=== PATIENT | male | born 1965 | race American Indian/Alaskan Native ===

== ENCOUNTER 2020-10-30 00:12 | Observation (INO) | payer OTHER ==
[2020-10-30] MEDS ORDERED: ASPIRIN 325 MG TAB PO ONE (00:22)
[2020-10-30] MEDS ORDERED: fentaNYL 100 MCG/2 ML INJ IV ONE (01:00)
[2020-10-30] MEDS ORDERED: NITROGLYCERIN 2% OINT 1 GM TP ONE (01:00)
[2020-10-30] MEDS ORDERED: ONDANSETRON 4 MG/2 ML INJ IV ONE (01:00)
--- NOTE | 2020-10-30 01:05 | Emergency Department Report ---
HPI - General Chief Complaint: Chest Pain Time Seen by Provider: 10/30/20 00:49 - HPI HPI: Room 22 The patient is a 55-year-old male present with a chief complaint of chest pain. Patient states for 1 week he has had a constant substernal chest tightness. The patient states the tightness worsened tonight prompting him to come to the hospital. Patient denies shortness of breath, nausea/vomiting or diaphoresis with his pain. Patient currently gets his chest tightness a score of 8/10. Patient states he is never had a stress test or cardiac catheterization. Patient states he has a history of crack abuse but has not used any since last year ED Past Medical Hx - Past Medical History Previous Medical History?: Yes Hx Hypertension: Yes Hx Diabetes: Yes - Surgical History Past Surgical History?: No - Family History Family history: no significant - Social History Smoking Status: Never Smoker Substance Use Type: None (No illicit drugs currently. History of crack abuse last year), Alcohol (Occasional) ED Review of Systems ROS: Stated complaint: CHEST PAIN Other details as noted in HPI Constitutional: denies: diaphoresis Eyes: denies: eye pain ENT: denies: throat pain Respiratory: denies: shortness of breath Cardiovascular: chest pain Endocrine: no symptoms reported Gastrointestinal: denies: nausea, vomiting Genitourinary: denies: dysuria Musculoskeletal: denies: back pain Neurological: denies: headache Physical Exam - Physical Exam Physical Exam: GENERAL: The patient is well-developed well-nourished male lying on stretcher holding chest appearing to be in mild discomfort HEENT: Normocephalic. Atraumatic. Extraocular motions are intact. Patient has moist mucous membranes. NECK: Supple. Trachea midline CHEST/LUNGS: Clear to auscultation. There is no respiratory distress noted. HEART/CARDIOVASCULAR: Regular. There is no tachycardia. There is no gallop rub or murmur. ABDOMEN: Abdomen is soft, nontender. Patient has normal bowel sounds. There is no abdominal distention. SKIN: There is no rash. There is no edema. There is no diaphoresis. NEURO: The patient is awake, alert, and oriented. The patient is cooperative. The patient has no focal neurologic deficits. The patient has normal speech MUSCULOSKELETAL: There is no evidence of acute injury. ED Medical Decision Making - Lab Data Result diagrams: 10/30/20 00:41 10/30/20 00:41 Laboratory Tests 10/30/20 10/30/20 10/30/20 00:41 00:41 00:41 WBC 6.1 RBC 5.26 H Hgb 14.1 Hct 42.6 MCV 81 L MCH 27 L MCHC 33 RDW 14.9 Plt Count 212 Lymph % (Auto) 36.6 H [place] % (Auto) 9.5 H Eos % (Auto) 2.8 Baso % (Auto) 0.9 Lymph # (Auto) 2.2 [place] # (Auto) 0.6 Eos # (Auto) 0.2 Baso # (Auto) 0.1 Seg Neutrophils % 50.2 Seg Neutrophils # 3.0 PT INR Sodium 142 Potassium 4.0 Chloride 108.0 H Carbon Dioxide 24 Anion Gap 14 BUN 13 Creatinine 1.0 Estimated GFR > 60 BUN/Creatinine Ratio 13 Glucose 203 H Calcium 8.3 L Total Bilirubin 0.20 AST 17 ALT 14 Alkaline Phosphatase 71 Troponin T < 0.010 Total Protein 6.8 Albumin 3.8 L Albumin/Globulin Ratio 1.3 10/30/20 00:52 WBC RBC Hgb Hct MCV MCH MCHC RDW Plt Count Lymph % (Auto) [place] % (Auto) Eos % (Auto) Baso % (Auto) Lymph # (Auto) [place] # (Auto) Eos # (Auto) Baso # (Auto) Seg Neutrophils % Seg Neutrophils # PT 11.5 L INR 0.86 L Sodium Potassium Chloride Carbon Dioxide Anion Gap BUN Creatinine Estimated GFR BUN/Creatinine Ratio Glucose Calcium Total Bilirubin AST ALT Alkaline Phosphatase Troponin T Total Protein Albumin Albumin/Globulin Ratio - EKG Data -: EKG Interpreted by Me EKG shows normal: sinus rhythm Rate: normal - EKG Data When compared to previous EKG there are: previous EKG unavailable Interpretation: nonspecific ST-T wave arnav (T wave inversions in leads I and aVL.) - Radiology Data Radiology results: report reviewed (Chest x-ray), image reviewed (Chest x-ray) interpreted by me: Chest x-ray-no focal infiltrates, no pneumothorax. No foreign body seen [facility] [address] [place] [address] XRay Report Signed Patient: FRANKIE SUNSHINE MR#: [id number] : 1965 Acct:[id number] Age/Sex: 55 / M ADM Date: 10/30/20 Loc: ED Attending Dr: Ordering Physician: ELI DAVIS MD Date of Service: 10/30/20 Procedure(s): XR chest 1V ap Accession Number(s): [id number] cc: ELI DAVIS MD Fluoro Time In Minutes: CHEST 1 VIEW 10/30/2020 12:14 AM INDICATION / CLINICAL INFORMATION: chest pain. COMPARISON: None available. FINDINGS: SUPPORT DEVICES: None. HEART / MEDIASTINUM: No significant abnormality. LUNGS / PLEURA: No significant pulmonary or pleural abnormality. No pneumothorax. ADDITIONAL FINDINGS: No significant additional findings. IMPRESSION: 1. No acute findings. Signer Name: Marco Antonio Beltre MD Signed: 10/30/2020 1:17 AM Workstation Name: [id number] Transcribed By: TL Dictated By: Marco Antonio Beltre MD Electronically Authenticated By: Marco Antonio Beltre MD Signed Date/Time: 10/30/20116 DD/ 6 - Differential Diagnosis ACS, pericarditis, GERD Critical care attestation.: If time is entered above; I have spent that time in minutes in the direct care of this critically ill patient, excluding procedure time. ED Disposition Clinical Impression: Chest pain Disposition: 09 OP ADMIT IP TO THIS HOSP Is pt being admited?: Yes Does the pt Need Aspirin: Yes Condition: Fair Instructions: Nonspecific Chest Pain, Adult Time of Disposition: 02:11 (Hospitalist paged (Dr Cabrera)) Heart Score - HEART Score History: Moderately suspicious EKG: Non-specific Age: 45-65 Risk factors: 1-2 risk factors Troponin: < normal limit HEART Score: 4
--- NOTE | 2020-10-30 01:22 | XRay Report ---
CHEST 1 VIEW 10/30/2020 12:14 AM INDICATION / CLINICAL INFORMATION: chest pain. COMPARISON: None available. FINDINGS: SUPPORT DEVICES: None. HEART / MEDIASTINUM: No significant abnormality. LUNGS / PLEURA: No significant pulmonary or pleural abnormality. No pneumothorax. ADDITIONAL FINDINGS: No significant additional findings. IMPRESSION: 1. No acute findings. Signer Name: Marco Antonio Beltre MD Signed: 10/30/2020 1:17 AM Workstation Name: [id number]
[2020-10-30 01:34] LABS: Basophils # (Auto) 0.1 K/mm3 (0.0-0.1); Basophils % (Auto) 0.9 % (0.0-1.8); Eosinophils # (Auto) 0.2 K/mm3 (0.0-0.4); Eosinophils % (Auto) 2.8 % (0.0-4.3); Hematocrit 42.6 % (35.5-45.6); Hemoglobin 14.1 gm/dl (11.8-15.2); Lymphocytes # (Auto) 2.2 K/mm3 (1.2-5.4); Lymphocytes % (Auto) 36.6 % (13.4-35.0); Mean Corpuscular HGB Conc 33 % (32-34); Mean Corpuscular Volume 81 fl (84-94); Monocytes # (Auto) 0.6 K/mm3 (0.0-0.8); Monocytes % (Auto) 9.5 % (0.0-7.3); Platelet Count 212 K/mm3 (140-440); Red Blood Count 5.26 M/mm3 (3.65-5.03); Red Cell Distribution Width 14.9 % (13.2-15.2)
[2020-10-30 01:42] LABS: INR 0.86 (0.87-1.13)
[2020-10-30 01:58] LABS: Alanine Aminotransferase 14 units/L (7-56); Albumin 3.8 g/dL (3.9-5); BUN/Creatinine Ratio 13; Blood Urea Nitrogen 13 mg/dL (9-20); Calcium 8.3 mg/dL (8.4-10.2); Hemolysis Index 12
[2020-10-30] MEDS ORDERED: NITROGLYCERIN 0.4 MG TAB SUBL SL PRN (02:27)
[2020-10-30] MEDS ORDERED: ACETAMINOPHEN 325 MG TAB PO PRN ×2 (02:27)
[2020-10-30] MEDS ORDERED: ONDANSETRON 4 MG/2 ML INJ IV PRN (02:27)
[2020-10-30] MEDS ORDERED: traMADol 50 MG TAB PO PRN (02:27)
[2020-10-30] MEDS ORDERED: DEXTROSE 50% IN WATER (25GM) 50 ML SYRINGE IV PRN (02:27)
[2020-10-30] MEDS ORDERED: MORPHINE 2 MG/1 ML INJ IV PRN (02:27)
[2020-10-30] MEDS ORDERED: MAGNESIUM HYDROXIDE (MOM) ORAL LIQD UDC PO PRN (02:27)
--- NOTE | 2020-10-30 02:40 | History and Physical Report ---
History of Present Illness Date of examination: 10/30/20 Date of admission: 10/30/2020 Chief complaint: Chest Pain History of present illness: 55-year-old -[place] male with known history of hypertension and diabetes mellitus presenting to the emergency room today complaining of chest pain. Chest pain is substernal, constant and has been ongoing for about 1 week. Pain felt like tightness and suddenly woke him up tonight and therefore decided to report to the emergency room for further evaluation. He denies any fever or chills, no nausea or vomiting, no headache or dizziness, no diaphoresis. On a scale of 10 pain is about 8/10 in severity. Pain is worse on exertion and gets better on resting. Patient admits to having history of crack abuse about a year ago and is currently in a rehab program. Work-up in the emergency room has been unremarkable except for some flipped T waves in the lateral leads on EKG. Patient is being admitted for chest pain evaluation. Past History Past Medical History: diabetes, hypertension Past Surgical History: No surgical history Social history: alcohol abuse (Occasional Alcohol intake), other (H/O crack cocaine abuse last year - in Rehab.) Family history: no significant family history Medications and Allergies Allergies Allergy/AdvReac Type Severity Reaction Status Date / Time No Known Allergies Allergy Unverified 10/30/20 00:16 Review of Systems Constitutional: no fever, no chills Ears, nose, mouth and throat: no nasal congestion, no sore throat Cardiovascular: chest pain, no palpitations Respiratory: no cough, no shortness of breath Gastrointestinal: no abdominal pain, no nausea, no vomiting, no diarrhea Genitourinary Male: no dysuria, no hematuria, no flank pain, no nocturia Musculoskeletal: no neck pain, no low back pain Integumentary: no rash, no pruritis Neurological: no headaches, no confusion Psychiatric: no anxiety, no depression Endocrine: no polyphagia, no polydipsia, no polyuria, no nocturia Exam - Constitutional Vitals: Temp Pulse Resp BP Pulse Ox 98.7 F 69 21 157/77 97 10/30/20 00:20 10/30/20 01:46 10/30/20 01:46 10/30/20 01:46 10/30/20 01:46 General appearance: Present: no acute distress, well-nourished, obese - EENT Eyes: Present: PERRL, EOM intact. Absent: scleral icterus ENT: hearing intact, clear oral mucosa, dentition normal - Neck Neck: Present: supple, normal ROM - Respiratory Respiratory effort: normal Respiratory: bilateral: CTA - Cardiovascular Rhythm: regular Heart Sounds: Present: S1 & S2. Absent: gallop, systolic murmur, diastolic murmur, rub, click - Extremities Extremities: no ischemia, pulses intact, pulses symmetrical, No edema, normal temperature, normal color, Full ROM Peripheral Pulses: within normal limits - Abdominal General gastrointestinal: Present: soft, non-tender, non-distended, normal bowel sounds. Absent: mass - Integumentary Integumentary: Present: clear, warm, dry, normal turgor. Absent: rash - Musculoskeletal Musculoskeletal: strength equal bilaterally - Psychiatric Psychiatric: appropriate mood/affect, intact judgment & insight, memory intact, cooperative - Neurologic Neurologic: CNII-XII intact, no focal deficits, moves all extremities HEART Score - HEART Score History: Moderately suspicious EKG: Non-specific Age: 45-65 Risk factors: 1-2 risk factors Troponin: Troponin T < 0.010 ng/mL (0.00-0.029) 10/30/20 00:41 Troponin: < normal limit HEART Score: 4 Results - Labs CBC & Chem 7: 10/30/20 00:41 10/30/20 00:41 Labs: Abnormal lab results 10/30/20 10/30/20 10/30/20 Range/Units 00:41 00:41 00:52 RBC 5.26 H (3.65-5.03) M/mm3 MCV 81 L (84-94) fl MCH 27 L (28-32) pg Lymph % (Auto) 36.6 H (13.4-35.0) % [place] % (Auto) 9.5 H (0.0-7.3) % PT 11.5 L (12.2-14.9) Sec. INR 0.86 L (0.87-1.13) Chloride 108.0 H (98-107) mmol/L Glucose 203 H (75-100) mg/dL Calcium 8.3 L (8.4-10.2) mg/dL Albumin 3.8 L (3.9-5) g/dL Assessment and Plan - Patient Problems (1) Chest pain Current Visit: Yes Status: Acute Plan to address problem: Patient admitted and placed on telemetry. Will check serial cardiac enzymes. P atient placed on daily aspirin, sublingual nitroglycerin and IV morphine as needed for chest pain. He has not had a stress test or cardiac catheterization in the past. We will request cardiology evaluation. (2) Hypertension Current Visit: Yes Status: Acute Plan to address problem: We will resume routine home medications once reconciled. Monitor vital signs closely. (3) Diabetes mellitus Current Visit: Yes Status: Acute Plan to address problem: We will monitor Accu-Cheks. Patient placed on sliding scale insulin. (4) DVT prophylaxis Current Visit: Yes Status: Acute Plan to address problem: Patient placed on subcutaneous Lovenox.
[2020-10-30 03:45] LABS: Basophils % (Auto) 0.6 % (0.0-1.8); Eosinophils # (Auto) 0.1 K/mm3 (0.0-0.4); Eosinophils % (Auto) 2.5 % (0.0-4.3); Hematocrit 39.7 % (35.5-45.6); Hemoglobin 13.2 gm/dl (11.8-15.2); Lymphocytes # (Auto) 2.2 K/mm3 (1.2-5.4); Mean Corpuscular HGB Conc 33 % (32-34); Mean Corpuscular Volume 81 fl (84-94); Monocytes # (Auto) 0.7 K/mm3 (0.0-0.8); Monocytes % (Auto) 12.2 % (0.0-7.3); Platelet Count 198 K/mm3 (140-440); Red Cell Distribution Width 14.9 % (13.2-15.2)
[2020-10-30 04:24] LABS: BUN/Creatinine Ratio 14; Blood Urea Nitrogen 14 mg/dL (9-20); Calcium 8.4 mg/dL (8.4-10.2); Hemolysis Index 13
[2020-10-30 07:43] LABS: Chol/HDL Ratio 3.78 %
[2020-10-30] MEDS: INSULIN LISPRO 100 UNIT/ML SUB-Q SCH ×3 (10:06→16:59)
--- NOTE | 2020-10-30 12:55 | Consultation ---
History of Present Illness Consult date: 10/30/20 Consult reason: chest pain History of present illness: 55-year-old -[place] male with known history of hypertension and diabetes mellitus presenting to the emergency room today complaining of chest pain. Chest pain is substernal, constant and has been ongoing for about 1 week. There is no exertional component to his chest pain but he reports there is some positional component as pain improves when he lays flat but gets worse on his side. He has prior h/o crack cocaine use and is currently in rehab program. NJ has been ruled out with negative cardiac enzymes. ECG reveals Sinus rhythm with lateral TWI Past History Past Medical History: diabetes, hypertension Past Surgical History: No surgical history Social history: alcohol abuse (Occasional Alcohol intake), other (H/O crack cocaine abuse last year - in Rehab.) Family history: no significant family history Medications and Allergies Allergies Allergy/AdvReac Type Severity Reaction Status Date / Time No Known Allergies Allergy Unverified 10/30/20 00:16 Active Meds: Active Medications Acetaminophen (Acetaminophen 325 Mg Tab) 650 mg PO Q4H PRN PRN Reason: Pain MILD(1-3)/Fever >100.5/HORN Aspirin (Aspirin Ec 325 Mg Tab) 325 mg PO QDAY PONCE Dextrose (Dextrose 50% In Water (25gm) 50 Ml Syringe) 0 ml IV Q30MIN PRN; Protocol PRN Reason: Hypoglycemia Enoxaparin Sodium (Enoxaparin 40 Mg/0.4 Ml Inj) 40 mg SUB-Q QDAY@2200 PONCE; Protocol Insulin Human Lispro (Insulin Lispro 100 Unit/Ml) 0 unit SUB-Q ACHS [facility]; Protocol Last Admin: 10/30/20 11:57 Dose: Not Given Documented by: Magnesium Hydroxide (Magnesium Hydroxide (Mom) Oral Liqd Udc) 30 ml PO Q4H PRN PRN Reason: Constipation Morphine Sulfate (Morphine 2 Mg/1 Ml Inj) 2 mg IV Q5MIN PRN PRN Reason: Chest Pain Nitroglycerin (Nitroglycerin 0.4 Mg Tab Subl) 0.4 mg SL Q5M PRN PRN Reason: Chest Pain Ondansetron HCl (Ondansetron 4 Mg/2 Ml Inj) 4 mg IV Q8H PRN PRN Reason: Nausea And Vomiting Sodium Chloride (Sodium Chloride 0.9% 10 Ml Flush Syringe) 10 ml IV BID PONCE Last Admin: 10/30/20 10:06 Dose: 10 ml Documented by: Sodium Chloride (Sodium Chloride 0.9% 10 Ml Flush Syringe) 10 ml IV PRN PRN PRN Reason: LINE FLUSH Tramadol HCl (Tramadol 50 Mg Tab) 50 mg PO Q6H PRN PRN Reason: Pain, Moderate (4-6) Review of Systems All systems: negative (per hpi) Physical Examination Vital Signs Temp Pulse Resp BP Pulse Ox 98.7 F 71 18 152/90 100 10/30/20 00:20 10/30/20 00:20 10/30/20 00:20 10/30/20 00:20 10/30/20 00:20 HEENT: Positive: PERRL Neck: Positive: neck supple Cardiac: Positive: Reg Rate and Rhythm Lungs: Positive: clear to auscultation Results 10/30/20 03:08 10/30/20 03:08 Cardiac Enzymes 10/30/20 Range/Units 00:41 AST 17 (5-40) units/L Coagulation 10/30/20 Range/Units 00:52 PT 11.5 L (12.2-14.9) Sec. INR 0.86 L (0.87-1.13) Lipids 10/30/20 Range/Units 03:08 Triglycerides 187 H (2-149) mg/dL Cholesterol 140 (50-199) mg/dL HDL Cholesterol 37 L (40-59) mg/dL Cholesterol/HDL Ratio 3.78 % CBC 10/30/20 10/30/20 Range/Units 00:41 03:08 WBC 6.1 5.8 (4.5-11.0) K/mm3 RBC 5.26 H 4.90 (3.65-5.03) M/mm3 Hgb 14.1 13.2 (11.8-15.2) gm/dl Hct 42.6 39.7 (35.5-45.6) % Plt Count 212 198 (140-440) K/mm3 Lymph # (Auto) 2.2 2.2 (1.2-5.4) K/mm3 [place] # (Auto) 0.6 0.7 (0.0-0.8) K/mm3 Eos # (Auto) 0.2 0.1 (0.0-0.4) K/mm3 Baso # (Auto) 0.1 0.0 (0.0-0.1) K/mm3 Comprehensive Metabolic Panel 10/30/20 10/30/20 Range/Units 00:41 03:08 Sodium 142 143 (137-145) mmol/L Potassium 4.0 4.3 (3.6-5.0) mmol/L Chloride 108.0 H 109.7 H (98-107) mmol/L Carbon Dioxide 24 25 (22-30) mmol/L BUN 13 14 (9-20) mg/dL Creatinine 1.0 1.0 (0.8-1.3) mg/dL Glucose 203 H 146 H (75-100) mg/dL Calcium 8.3 L 8.4 (8.4-10.2) mg/dL AST 17 (5-40) units/L ALT 14 (7-56) units/L Alkaline Phosphatase 71 (35-129) units/L Total Protein 6.8 (6.3-8.2) g/dL Albumin 3.8 L (3.9-5) g/dL Assessment and Plan Atypical CP NJ ruled out with negative cardiac enzymes Description of pain is not suggestive of angina but patient has multiple RF for CAD as well as ECG abnormality. Htn DM Recommend: MPI tomorrow
--- NOTE | 2020-10-30 13:28 | Event Note ---
Date: 10/30/20 Patient seen and examined, no new complaints, continues with the pain.
[2020-10-30 13:51] LABS: Creatine Kinase MB 2.7 ng/mL (0.0-4.0)
--- NOTE | 2020-10-30 14:04 | Electrocardiograph Report ---
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
--- NOTE | 2020-10-30 14:05 | Electrocardiograph Report ---
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
[2020-10-30 20:13] LABS: Creatine Kinase MB 2.6 ng/mL (0.0-4.0)
[2020-10-30] MEDS ORDERED: ENOXAPARIN 40 MG/0.4 ML INJ SUB-Q SCH (22:00)
[2020-10-31] MEDS: INSULIN LISPRO 100 UNIT/ML SUB-Q SCH ×3 (05:44→12:40)
[2020-10-31] MEDS ORDERED: REGADENOSON 0.4 MG/5 ML INJ IV ONE (07:22)
[2020-10-31 08:13] LABS: INR 0.92 (0.87-1.13)
[2020-10-31 08:18] LABS: BUN/Creatinine Ratio 11; Blood Urea Nitrogen 10 mg/dL (9-20); Calcium 8.4 mg/dL (8.4-10.2); Hemolysis Index 1
[2020-10-31 09:08] LABS: Hematocrit 40.5 % (35.5-45.6); Hemoglobin 13.4 gm/dl (11.8-15.2); Mean Corpuscular HGB Conc 33 % (32-34); Mean Corpuscular Volume 81 fl (84-94); Platelet Count 189 K/mm3 (140-440); Red Blood Count 5.03 M/mm3 (3.65-5.03); Red Cell Distribution Width 14.7 % (13.2-15.2)
[2020-10-31] MEDS ORDERED: ASPIRIN EC 325 MG TAB PO SCH (10:00)
--- NOTE | 2020-10-31 10:17 | Electrocardiograph Report ---
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
--- NOTE | 2020-10-31 10:19 | Electrocardiograph Report ---
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 Electronically Signed On 10-31-2020 7:19:19 PDT by Jacques Macias
--- NOTE | 2020-10-31 11:20 | Discharge Summary ---
Providers - Providers Date of Admission: 10/30/20 02:27 Attending physician: GWENDOLYN MARKS MD 10/30/20 Consult to Cardiac Rehabilitation [CONS] Routine Reason For Exam: Phase I 10/30/20 02:28 Consult to Cardiology [CONS] Routine Consulting Provider: RHETT FREGOSO Reason For Exam: chest pain Primary care physician: BODY TECHNICIAN Hospitalization Reason for admission: chest pain Condition: Stable Hospital course: 55-year-old -[place] male with known history of hypertension and diabetes mellitus presenting to the emergency room today complaining of chest pain. Chest pain is substernal, constant and has been ongoing for about 1 week. Pain felt like tightness and suddenly woke him up tonight and therefore decided to report to the emergency room for further evaluation. He denies any fever or chills, no nausea or vomiting, no headache or dizziness, no diaphoresis. On a scale of 10 pain is about 8/10 in severity. Pain is worse on exertion and gets better on resting. Patient admits to having history of crack abuse about a year ago and is currently in a rehab program. Work-up in the emergency room has been unremarkable except for some flipped T waves in the lateral leads on EKG. Patient is being admitted for chest pain evaluation. Patient was seen by cardiology, felt chest pain is atypical, Description of pain is not suggestive of angina but patient has multiple RF for CAD as well as ECG abnormality. DM Chest pain likely costochondritis Current Visit: Yes Status: Acute Plan to address problem: Patient admitted and placed on telemetry. Will check serial cardiac enzymes. Patient placed on daily aspirin, sublingual nitroglycerin and IV morphine as needed for chest pain. He has not had a stress test or cardiac catheterization in the past. We will request cardiology evaluation. Hypertension Current Visit: Yes Status: Acute Plan to address problem: We will resume routine home medications once reconciled. Monitor vital signs closely. Diabetes mellitus Current Visit: Yes Status: Acute Plan to address problem: We will monitor Accu-Cheks. Patient placed on sliding scale insulin. Disposition: - TO HOME OR SELFCARE Time spent for discharge: 35 mins Core Measure Documentation - Palliative Care Palliative Care/ Comfort Measures: Not Applicable - Core Measures Any of the following diagnoses?: none Exam - Physical Exam Narrative exam: VITAL SIGNS: Reviewed. GENERAL: The patient appears normally developed, Vital signs as documented. HEAD: No signs of head trauma. EYES: Pupils are equal. Extraocular motions intact. EARS: Hearing grossly intact. MOUTH: Oropharynx is normal. NECK: No adenopathy, no JVD. CHEST: Chest with clear breath sounds bilaterally. No wheezes, rales, or rhonchi. CARDIAC: Regular rate and rhythm. S1 and S2, without murmurs, gallops, or rubs. VASCULAR: No Edema. Peripheral pulses normal and equal in all extremities. ABDOMEN: Soft, non tender and non distended. No rebound or guarding, and no masses palpated. Bowel Sounds normal. MUSCULOSKELETAL: Good range of motion of all major joints. Extremities without clubbing, cyanosis or edema. NEUROLOGIC EXAM: Alert and oriented x 3 No focal sensory or strength deficits. Speech normal. Follows commands. PSYCHIATRIC: Mood normal. SKIN: detail exam as documented in skin assessment - Constitutional Vitals: Temp Pulse Resp BP Pulse Ox 99.2 F 68 16 136/65 97 10/31/20 07:17 10/31/20 07:17 10/31/20 04:34 10/31/20 07:17 10/31/20 07:17 Plan Activity: advance as tolerated, fall precautions Diet: low fat Special Instructions: record daily weights, record daily BP diary, other (avoid substance use) Follow up with: PARKER ROCHA MD [Primary Care Provider] - 7 Days YOANNA GOSS MD [Staff Physician] - 7 Days Prescriptions: Aspirin [Adult Aspirin] 81 mg PO DAILY #30 tablet.
--- NOTE | 2020-10-31 11:47 | Progress Note ---
Assessment and Plan - Patient Problems (1) Chest pain Current Visit: Yes Status: Acute Plan to address problem: Patient admitted with atypical chest pain, ECG was sinus rhythm with nonspecific T wave changes, serial troponin levels were negative. Today he underwent a stress test and exercised 9 minutes of Colt protocol with no chest pain and no ST changes of ischemia. Thallium images are pending. Subjective Date of service: 10/31/20 Interval history: Patient underwent a stress test during which she exercised for 9 minutes of the Colt protocol, completing stage III and achieving 10 METS. Peak heart rate was 131, there was no chest pain and no ST changes of ischemia. Thallium images are pending for final test interpretation. Objective Vital Signs Temp Pulse Resp BP BP Pulse Ox 10/31/20 07:17 99.2 F 68 136/65 97 10/31/20 04:34 98.1 F 68 16 130/70 95 10/30/20 23:41 98.0 F 68 14 144/79 98 10/30/20 22:00 66 10/30/20 19:35 98.1 F 63 14 141/68 95 10/30/20 16:06 97.9 F 65 18 136/71 96 10/30/20 12:02 98.7 F 73 18 120/61 98 - Physical Examination General: Appears Well, No Apparent Distress HEENT: Positive: PERRL Neck: Positive: neck supple Cardiac: Positive: Reg Rate and Rhythm Lungs: Positive: clear to auscultation Neuro: Positive: Grossly Intact Abdomen: Positive: Soft Skin: Positive: Clear Extremities: Absent: edema - Labs and Meds Cardiac Enzymes 10/30/20 10/30/20 Range/Units 13:16 19:03 CK-MB (CK-2) 2.7 2.6 (0.0-4.0) ng/mL Coagulation 10/31/20 Range/Units 06:56 PT 12.2 (12.2-14.9) Sec. INR 0.92 (0.87-1.13) CBC 10/31/20 Range/Units 06:56 WBC 4.1 L (4.5-11.0) K/mm3 RBC 5.03 (3.65-5.03) M/mm3 Hgb 13.4 (11.8-15.2) gm/dl Hct 40.5 (35.5-45.6) % Plt Count 189 (140-440) K/mm3 Comprehensive Metabolic Panel 10/31/20 Range/Units 06:56 Sodium 137 (137-145) mmol/L Potassium 4.2 (3.6-5.0) mmol/L Chloride 103.1 (98-107) mmol/L Carbon Dioxide 25 (22-30) mmol/L BUN 10 (9-20) mg/dL Creatinine 0.9 (0.8-1.3) mg/dL Glucose 138 H (75-100) mg/dL Calcium 8.4 (8.4-10.2) mg/dL
[2020-10-31 16:52] VITALS: BP 147/72
[2020-10-31 17:36] LABS: Anisocytosis RARE; Total Cells Counted 100
== END 2020-10-31 18:23 | disposition home or self-care (01) ==
LOC: ED 00:12 → 4A 02:27
PROVIDERS: ADMIT Internal Medicine Geriatric Medicine; ATTEND Internal Medicine
DX: R07.89 Other chest pain (principal); I10 Essential (primary) hypertension; E11.9 Type 2 diabetes mellitus without complications; R94.31 Abnormal electrocardiogram [ECG] [EKG]; Z79.82 Long term (current) use of aspirin; Z79.4 Long term (current) use of insulin
CPT/HCPCS: 36415; 71045; 78452; 80048; 80053; 80061; 82550; 82553; 82962; 84484; 85007; 85025; 85610; 93005; 93017; 93306; 96372; 99285; A9502; G0378; J1650; J1815